=== PATIENT | male | born 1980 | race Hispanic/Latino ===

== ENCOUNTER 2021-02-07 20:42 | Emergency (ER) | payer OTHER, MEDICAID, SELFPAY ==
[2021-02-07 20:44] VITALS: BP 147/98; PULSE 105; RESP 16; TEMP 37; O2SAT 97; BMI 35.9
--- NOTE | 2021-02-07 22:04 | EX.ED.VISEXT ---
HPI History of Present Illness Chief Complaint: Bite Narrative Narrative: Patient presenting for evaluation secondary to a dog bite. Patient reports that his neighbors dog assaulted him and bit him in the right shoulder. Patient states that the dog is up-to-date on vaccines, he denies any other injuries other than the right shoulder injury. Patient has no history of immunosuppression, does have an underlying history of hypertension. Review of systems otherwise negative. ROS ROS ED Constitutional Constitutional ED: Denies fever(s) Gastrointestinal Gastrointestinal: Denies nausea or vomiting Musculoskeletal Musculoskeletal: Denies myalgias Integumentary Reports Abrasions Neurologic Neurologic: Denies headache(s), paresthesias or weakness Hematologic/Lymphatic Hematologic/Lymphatic: Denies easy bleeding or easy bruising Allergic/Immunologic Allergic/Immunologic ED: Denies urticaria PFSH PFSH Allergy/AdvReac Type Severity Reaction Status Date / Time No Known Allergies Allergy Verified 02/07/21 20:43 Social History Smoking Status: Never smoker EXAM Physical Exam Const Vital Signs: 02/07/21 20:44 Temperature 98.6 F Temperature Source Temporal Pulse Rate 105 H Respiratory Rate 16 Blood Pressure 147/98 H Blood Pressure Mean 114 Pulse Ox 97 Oxygen Delivery Method Room Air Positive well nourished and well developed General Appearance ED: well developed and NAD HEENT normocephalic and atraumatic Eyes EOMs intact bilaterally Neck full ROM Resp normal respiratory effort and clear to auscultation bilaterally Cardio regular rate, regular rhythm and no murmurs GI non-tender Palpation: soft Extremity full ROM Extremity Narrative: Patient has a very superficial abrasion noted over the right anterior shoulder, no signs of laceration or puncture wound. No signs of deep space injury. Abrasion measures may be 1.5 cm in total length Skin Skin Narrative: Abrasion is noted MDM MDM MDM Narrative Medical decision making narrative: Patient presented secondary to a dog bite. The bite wound is extremely superficial, and is not associated with a puncture wound or laceration. I do not believe that irrigation is indicated. I do not believe that imaging is indicated. Abrasion is superficial enough, patient really does not even need further tetanus prophylaxis. Patient was given reassurance, he was recommended to use antibiotic ointment and a dressing. He was educated on signs and symptoms for which to return. Discharge Plan Triage Chief Complaint: Bite ED Provider: Sy Solano Dx/Rx/DC Orders Clinical Impression: Dog bite Instructions: ED Dog Bite Primary Care Provider: Care Physician,No Primary Referrals: Care Physician,No Primary [Primary Care Provider] - Disposition Disposition: Home, Self Care Discharge Date/Time: 02/07/21 21:35
== END 2021-02-07 21:35 | disposition home or self-care (01) ==
LOC: ED 21:45
PROVIDERS: Emergency Provider Emergency Medicine
DX: S40.271A Other superficial bite of right shoulder, initial encounter (principal); S40.211A Abrasion of right shoulder, initial encounter; W54.0XXA Bitten by dog, initial encounter; Y93.9 Activity, unspecified; Y92.9 Unspecified place or not applicable; Y99.9 Unspecified external cause status; I10 Essential (primary) hypertension
CPT/HCPCS: 99282

== ENCOUNTER → 2022-07-25 | Outpatient (CLI) | payer MEDICAID, SELFPAY ==
[2022-07-25 11:37] LABS: Hemoglobin A1c 5.8 % (3.8-5.6)
== END | disposition home or self-care (01) ==
PROVIDERS: Referring Provider Orthopaedic Surgery; Visit Provider Orthopaedic Surgery
DX: R73.09 Other abnormal glucose (principal)
CPT/HCPCS: 36415; 83036

== ENCOUNTER 2023-05-08 16:31 | Outpatient (RCR) | payer OTHER, SELFPAY ==
--- NOTE | 2023-05-09 07:11 | HP.FCE ---
Task Lift Floor (Occasional 1-33% of Day): 60# Floor (Frequent 34-66% of Day): 30# Floor (Constant 67-100% of Day): 12# Floor PDL: Medium Knee (Occasional 1-33% of Day): 60# Knee (Frequent 34-66% of Day): 30# Knee (Constant 67-100% of Day): 12# Knee PDL: Medium Waist (Occasional 1-33% of Day): 60# Waist (Frequent 34-66% of Day): 30# Waist (Constant 67-100% of Day): 12# Waist PDL: Medium Shoulder (Occasional 1-33% of Day): 45# Shoulder (Frequent 34-66% of Day): 22# Shoulder (Constant 67-100% of Day): 9# Shoulder PDL: Medium Overhead (Occasional 1-33% of Day): 45# Overhead (Frequent 34-66% of Day): 22# Overhead (Constant 67-100% of Day): 9# Overhead PDL: Medium Comments: Medium Physical Demand level for lifting on all levels Work Activity/Posture Bending: Frequent Ability (34-66% of day) Squatting: Frequent Ability (34-66% of day) Kneeling: Frequent Ability (34-66% of day) Reaching out: Frequent Ability (34-66% of day) Reaching up: Frequent Ability (34-66% of day) Sitting: Frequent Ability (34-66% of day) Walking: Frequent Ability (34-66% of day) Standing: Frequent Ability (34-66% of day) Reference Reference: Duration Sedentary Sedentary Light Light Light Medium Medium Medium Heavy Very Heavy Heavy Occasional (0-33% of day) Frequent (34-66% of day) Constant (67-100% of day) 10 # Negligible Negligible 15 # 8 # Negligible 20 # 10# Negli. 35 # 18 # 7 # 50 # 25 # 10 # 75 # 100 # >100 # 38 # 50 # >50 # 15 # 20 # >20 # Patient Information Height: 1.83 m Weight:: 117.934 kg Hand Dominance: Right Medical History Medical History Including Restrictions: This 43 year old male was seen for FCE with dx of Left Biceps tendon complete tear- pt states DOI 07/20/22 and DOS 07/29/22. Pt underwent PT for about 6 months. states he did get some shoulder issues following his repair because he was not moving shoulder well following sx. PT states he retuned to work October 24. pt states he states he can perform job and still feels deconditioned. pt is currently on light duty ( no lifting over 40#) pt states he exercise on a regular basis Diagnoses Diagnoses: HTN left biceps tendon rupture low back pain Symptoms Symptoms: pt states he has numbness from incision that shoots to wrist. pain Pain Pain: pt states pain is more with weight bearing pt states pain ranges 1-3/10 pt arrives after work states 2-3/10 pain Jordi pain scale sore of 28/78 interpretation: the higher the score indicates increase pain Work History Work History: Pt state he works for [employer]. pt states he has worked there for about three years- pts job [employer]. 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 pt states there is not lifting job requirement. Behavioral Behavioral: Pt cooperative throughout assessment ADLS ADLS: pt lives with family in two story home. Pt states he has no limitations with ADLs and IADLs. pt states he returned to doing his yard work at [employer] at end of December. pt Drives IND pt denies use of adaptive eq. 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 from remote History of IF laceration all other ROM is WNL Strength: Fet2 resistive testing Shoulder flexion right 28# left 26# shoulder extension right 52# left 44# biceps right 37# left 27# triceps right 37# left 34# Hip flexion right 37# Left 48# Quadriceps right 45# left 43# Hamstring right 50# left 47# pt demo a 10# difference between right and left biceps resistive testing Right Hotel Guest Service Agent Strength Average: 118.33 Right Hotel Guest Service Agent Strength Percentile: 53% Left Hotel Guest Service Agent Strength Average: 88.33 Left Hotel Guest Service Agent Strength Percentile: 15% Right Lateral Pinch Average: 30.00 Right Lateral Pinch Percentile: >90% Left Lateral Pinch Average: 24.66 Left Lateral Pinch Percentile: 90% Right Tripod Pinch Average: 20.00 Right Tripod Pinch Percentile: 50% Left Tripod Pinch Average: 18.00 Left Tripod Pinch Percentile: 50% Sensation: [employer] sensory testing pt testing at normal sensation right 2.83 left 2.83 pt does report tingling/numb sensation distal from incision proximal of wrist with testing pt able to feel at normal sensation until 2 distal to incision Fine Motor: 9 hole peg test right 18.99 placing pt at the 50% for age left 19.49 placing pt at the 50% for age Balance: no loss of balance during the assessment Normal balance Non Material Handling Activities Bending: pt demo the ability to bend forward 3/3x, 10/10x and 10/10x rapidly heart rate 104 pt can bend forward on a frequent ability Squatting: pt demo the ability to squat 3/3x, 10/10x and 10x rapidly heart rate 106 pt demo the ability to squat on frequent ability Kneeling: pt demo the ability to kneel 3/3x, 10/10x and 10/10x rapidly pt can kneel on frequent ability. heart rate 126 Reaching out/up: pt demo the ability to reach up/out 3/3x, 10/10x and 10/10x rapidly pt reports feeling of pulling sensation in volar forearm hear rate 91 Walking: pt has no difficulty with ambulation ambulated with a quick reciprocal gait pattern pt can ambulate on frequent ability Standing: pt reports no difficulty with standing pt stood for 8 min shifting body weight. pt can stand on frequent ability Sitting: pt demo the ability to sit for 45 min with no expressed or apparent discomfort pt can sit on frequent ability Climbing Stairs: pt demo the ability to ascend and descend 10 steps with reciprocal step pattern - use of railing. Dynamic Occasional Lifting Capacity Floor Lift: pt demo the ability to lift 60# maximally from floor level with good lifting mechanics. Physical demand level of Medium Knee Lift: pt demo the ability to lift 60# maximally from knee level with good lifting mechanics. Physical demand level of Medium Waist Lift: pt demo the ability to lift 60# maximally from waist level with good lifting mechanics. Physical demand level of Medium Shoulder Lift: pt demo the ability to lift 45# maximally from shoulder level with good lifting mechanics. Physical demand level Medium Overhead Lift: pt demo the ability to lift 45# maximally from overhead level with good lifting mechanics. Physical demand level of Medium Carrying: pt demo the ability to carry 35# maximally for 30 feet - pt did feel pulling at repair site Medium Comments: push/ pull 135# with good ability Pt reports slight pulling sensation at incision and burning/tingling sensation in volar forearm. pts heart rate raged from 67 to 126 pt did not report change in pain level
--- NOTE | 2023-05-09 07:11 | HP.OTFCE.D ---
FCE D/C Summary Discharge text: WILLEM MARES was seen for a one time visit for an FCE on 05/08/23 and is discharged.
== END 2023-05-08 19:00 | disposition home or self-care (01) ==
LOC: OT 16:31
PROVIDERS: Visit Provider Orthopaedic Surgery
DX: S46.292D Other injury of muscle, fascia and tendon of other parts of biceps, left arm, subsequent encounter (principal)
CPT/HCPCS: 97750

== ENCOUNTER 2024-01-11 12:30 | Outpatient (RCR) | payer OTHER, MEDICAID, SELFPAY ==
--- NOTE | 2024-01-02 12:51 | HP.PTEVAL ---
Patient's Visit Information Visit Information Visit Information: WILLEM MARES is a 43 year old M referred to Physical Therapy by Dr. Surya Curry MD with a diagnosis of Biceps Tendon. Date of Evaluation: 01/02/24 Physical Therapist: Tierra Odom DPT Visit Plan Frequency: 2x /Week Duration: 2 Weeks Plan: Scapular Strength/Stabilization- GIVE HEP EACH VISIT only has 4 visits per [facility] HEP Given IE: Mid Row, LAE, Bilateral ER Subjective Subjective: Patient reports that he had surgery of his biceps tendon of the left shoulder Jul 292022- he did therapy and was discharged. He has continued to notice tingling in the forearm to the wrist and weakness of the shoulder. He is right hand dominate. The pain is located in the elbow- Worst: 4/10 Agg: activity. Eases: rest, Tylenol Best: 0/10. Describes the pain as dull and achy and if something triggers it its sharp. 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 He does not have COLYB or neck pain. Sleep: not disturbed. Work: unemployed. Exercise he does pushups about 100 a day and being active with the kids (5) and being active around his home. PMHx: left meniscal repair 2013 Meds: [facility] Objective Objective: Posture: forward head, rounded shoulders- can correct with verbal cues Gait: good arm swing and trunk rotation ROM: WNL In all planes of the cervical and UE Palpation: not tender to touch Strength: Scap: fair, Shoulder: Right: Flexion: 31 Extb: 32 Abd: 45 Add: 64 IR: 34 ER: 23 Left: Flexion: 32 Extb: 39 Abd: 48 Add: 56 IR: 31 ER: 26 Elbow: Right: Flexion: 36 Extn: 36 Left: Flexion: 31 Extn: 29 Bindery Machine Tender: Right: 110 Left: 110 Balance/Special Test Scores Quick DASH Score: 20.4525 Goals Goal 1:: Patient will be I with HEP and progression Goal Time Frame: 4-6 Weeks Goal 2:: Patient will maintain proper posture t/o tx session to demo increased scap s/s Goal Time Frame: 4-6 Weeks Goal 3:: Patient will report 80% improvement Goal Time Frame: 4-6 Weeks Rehabilitation Potential Physical Therapy Diagnosis: Patient presents with scapular strength/stabilization leading to pain and N/T in the left UE Rehabilitation Potential: Good Anticipated Interventions Patient/Client Instruction: Educate patient on: Benefits of Fitness Program Therapeutic Exercise to Include: Strength training, Endurance training, Agility training, Body mechanics, Postural training, Flexibilty training, Neuromotor development, Passive ROM, Active ROM and Scapular Strength/Stabilization For the Purpose of:: To improve ability to perform ADL's Text: Thank you for the opportunity to evaluate your patient. For Medicare and Medicare HMO plans, please review the plan of care and approve it. It will need to be FAXED BACK to us at [phone] for Medicare purposes. For Medicare only, by signing this I certify the plan of care. Please let me know if there are questions or concerns regarding this plan of care. Physician Signature: Date:
--- NOTE | 2024-01-18 12:22 | HP.PTDCNRP_ITS ---
Patient Information Patient Information: WILLEM MARES was seen in my office for initial evaluation on 01/02/24. The following Plan of Care was established for this patient: POC Established Initial Frequency: 2x /Week Initial Duration: 2 Weeks Anticipated Interventions Patient/Client Instruction: Educate patient on: Benefits of Fitness Program Therapeutic Exercise to Include: Strength training, Endurance training, Agility training, Body mechanics, Postural training, Flexibilty training, Neuromotor development, Passive ROM, Active ROM and Scapular Strength/Stabilization For the Purpose of:: To improve ability to perform ADL's Last Seen Last Seen: This patient was last seen in our office . Pertinent comments regarding their Physical therapy will appear below: At this point I will be discontinuing this patient from physical therapy. I wo uld be happy to see this patient again in the future if found appropriate by the physician. Thank you! Tierra Odom, DPT Balance/Gait/Functional tests Balance/Special Test Scores Quick DASH Score: 13.6395
== END 2024-01-11 19:00 | disposition home or self-care (01) ==
LOC: PT 12:30
PROVIDERS: Referring Provider Orthopaedic Surgery; Visit Provider Orthopaedic Surgery
DX: S46.292D Other injury of muscle, fascia and tendon of other parts of biceps, left arm, subsequent encounter (principal)
CPT/HCPCS: 97110; 97162

== ENCOUNTER → 2024-08-16 | Outpatient (CLI) | payer OTHER, SELFPAY ==
[2024-08-16 16:59] LABS: Hematocrit 41.8 % (40-54); Hemoglobin 14.3 g/dL (13.0-16.5); Mean Corp Hgb Conc 34.2 g/dL (32-36); Mean Corpuscular Hgb 29.1 pg (27.0-32.0); Mean Corpuscular Volume 85.1 fL (80-94); Mean Platelet Vol. 11.6 fl (6.2-12.0); Platelet Count 244 K/mm3 (150-450); RBC Distribution Width SD 39.9 fl (35.1-43.9); Red Blood Count 4.91 M/mm3 (4.6-6.2); White Blood Count 6.3 K/mm3 (4.4-11.0)
[2024-08-16 17:37] LABS: Color, Urine Yellow (Yellow); Glucose, Dipstick Normal (Normal); Ketone-Dipstick Negative (Negative); Leukocyte Esterase-Dipstick Negative /ul (Negative); Nitrite-Dipstick Negative (Negative); Occult Blood-Urine Negative /ul (Negative); Protein-Dipstick 15 mg/dl (Negative); Specific Gravity, Urine 1.015 (1.002-1.030); Urine Bilirubin Dipstick Negative (Negative); Urine Clarity Clear (Clear); Urine Urobilinogen Normal (Normal)
[2024-08-16 21:54] LABS: Hemoglobin A1c 5.5 % (<=5.6)
[2024-08-16 21:56] LABS: ALB/GLOB Ratio 1.4 RATIO (0.9-2.4); AST(SGOT) 27 U/L (<=37); Alanine Aminotransfer ALT/SGPT 33 U/L (<=46); Albumin, Serum 4.5 g/dL (3.5-5.0); Alkaline Phosphatase 56 U/L (40-129); Anion Gap 12 (5-15); BUN 10 mg/dL (4-19); Calcium 9.4 mg/dL (7.6-11.0); Carbon Dioxide 26.1 mmol/L (22.0-29.0); Chloride 103 mmol/L (96-108); Creatinine, Serum 0.97 mg/dL (0.70-1.20); EST Glomerular Filtration Rate 100 (>60); Globulin 3.2 g/dL (2.2-4.2); Glucose 88 mg/dL (70-99); Potassium 3.8 mmol/L (3.3-5.1); Protein, Total 7.7 g/dL (5.9-8.4); Sodium Level 141 mmol/L (133-145); Total Bilirubin 0.59 mg/dL (0.00-1.30)
[2024-08-16 22:32] LABS: Cholesterol 183 mg/dL (<=200); High Density Lipoprotein 47 mg/dL; Low Density Lipoprotein Calc. 124 mg/dL; Triglycerides 63 mg/dL; Very Low Density Lipoprotein 13 mg/dL (5-40); cholesterol:hdl ratio screen 3.89
== END | disposition home or self-care (01) ==
LOC: LAB 16:32
PROVIDERS: Referring Provider Internal Medicine Infectious Disease; Visit Provider Internal Medicine Infectious Disease
DX: E78.2 Mixed hyperlipidemia (principal)
CPT/HCPCS: 36415; 80053; 80061; 81002; 83036; 85027